=== PATIENT | female | born 1950 | race Caucasian/White ===

== ENCOUNTER 2019-05-31 08:17 | Day surgery (SDC) | payer MEDICARE, BC ==
[~2019-05-31 08:17] MED LIST: CHONDR SU A NA/HYALUR INTRAOC KIT (SURGICARE) ONE; EPINEPHRINE INJ/PF 1 MG/1 ML AMPULE ONE; LIDOCAINE 1%/PHENYLEPHRINE 1.5% 1 ML VIAL ONE
[2019-05-31] MEDS: DORZOLAMIDE HCL 2%/TIMOLOL MALEAT 0.5% OPH SOLN 10 ML OD PRN ×2 (09:04)
[2019-05-31] MEDS: BESIFLOXACIN HCL 0.6% OPH SUSP 5 ML BOTTLE OD PRN ×4 (09:04→09:28)
[2019-05-31] MEDS: CYCLOPENTOLATE 0.2%/PHENYLEPHRINE 1% OPH SOLN 2 ML OD PRN ×3 (09:08→09:28)
[2019-05-31] MEDS: TROPICAMIDE 1% OPH SOLN 15 ML OD PRN ×3 (09:08→09:28)
[2019-05-31] MEDS: KETOROLAC TROMETHAMINE 0.45% 4 DROP/0.4 ML DROPERETTE OD PRN ×2 (09:09→10:30)
[2019-05-31] MEDS: TETRACAINE HCL 0.5% OPH SOLN 4 ML OD PRN ×3 (09:09→09:46)
[2019-05-31] MEDS ORDERED: MIDAZOLAM 2 MG/2 ML INJ ONE (09:22)
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
== END 2019-05-31 10:50 | disposition home or self-care (01) ==
LOC: SC 08:17
PROVIDERS: ATTEND Internal Medicine
DX: H25.813 Combined forms of age-related cataract, bilateral (principal); H43.813 Vitreous degeneration, bilateral; H52.4 Presbyopia; M06.9 Rheumatoid arthritis, unspecified; Z87.891 Personal history of nicotine dependence; Z79.899 Other long term (current) drug therapy
CPT/HCPCS: 66984; 00142; V2632; J2250; J3490 ×2; A9270; J0171; J2370; 142

== ENCOUNTER 2019-06-21 08:56 | Day surgery (SDC) | payer MEDICARE, BC ==
[~2019-06-21 08:56] MED LIST changes: +DORZOLAMIDE HCL 2%/TIMOLOL MALEAT 0.5% OPH SOLN 10 ML OS PRN; +KETOROLAC TROMETHAMINE 0.45% 4 DROP/0.4 ML DROPERETTE OS PRN
[2019-06-21] MEDS ORDERED: MIDAZOLAM 2 MG/2 ML INJ ONE (09:06)
[2019-06-21] MEDS ORDERED: FENTANYL CITRATE INJ/PF 100 MCG/2 ML AMPUL ONE (09:06)
[2019-06-21] MEDS ORDERED: ONDANSETRON HCL INJ/PF 4 MG/2 ML SDV ONE (09:06)
[2019-06-21] MEDS: TETRACAINE HCL 0.5% OPH SOLN 4 ML OS PRN ×3 (09:30→09:59)
[2019-06-21] MEDS: TROPICAMIDE 1% OPH SOLN 15 ML OS PRN ×3 (09:31→09:53)
[2019-06-21] MEDS: BESIFLOXACIN HCL 0.6% OPH SUSP 5 ML BOTTLE OS PRN ×3 (09:31→10:18)
[2019-06-21] MEDS: CYCLOPENTOLATE 0.2%/PHENYLEPHRINE 1% OPH SOLN 2 ML OS PRN ×3 (09:31→09:53)
[2019-06-21] MEDS ORDERED: EPINEPHRINE INJ/PF 1 MG/1 ML AMPULE ONE (09:51)
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
== END 2019-06-21 10:48 | disposition home or self-care (01) ==
LOC: SC 08:56
PROVIDERS: ATTEND Internal Medicine
DX: H25.812 Combined forms of age-related cataract, left eye (principal); Z96.1 Presence of intraocular lens
CPT/HCPCS: 66984; 00142; J2250; J3490 ×2; A9270; J0171; J3010; J2405; 142; V2632

== ENCOUNTER → 2019-11-21 | Outpatient (CLI) | payer MEDICARE, BC ==
--- NOTE | 2019-11-21 13:01 | WOMENS IMAGING REPORT ---
EXAM DESCRIPTION: 3D SCREENING MAMMO BILAT IMAGES COMPLETED DATE/TIME: 11/21/2019 10:43 am REASON FOR STUDY: Z12.31 ENCOUNTER FOR SCREENING MAMMOGRAM FOR MALIGNANT NEOPLASM OF BREAST Z12.31 ENCNTR SCREEN MAMMOGRAM FOR MALIGNANT NEOPLASM OF CRYSTAL COMPARISON: None. EXAM PARAMETERS: Views: Standard craniocaudal and mediolateral oblique views of each breast recorded using digital acquisition and breast tomosynthesis. Read with the assistance of CAD. .[facility] - R2 Contact Manager Version 9.2 LIMITATIONS: None. FINDINGS: No suspicious masses, suspicious calcifications or architectural distortion. No areas of c oncern. IMPRESSION: NEGATIVE MAMMOGRAM. BIRADS 1. BREAST DENSITY: b. There are scattered areas of fibroglandular density. BIRAD: ASSESSMENT: 1 NEGATIVE RECOMMENDATION: ROUTINE SCREENING COMMENT: The patient has been notified of the results by letter per MQSA requirements. Additional no tification policies are in place for contacting patient with suspicious or incomplete findings. Quality ID #225: The [employer] recommends an annual screening mammogram for women aged 40 years or over. This facility utilizes a reminder system to ensure that all patients receive reminder letters, and/or direct phone calls for appointments. This includes reminders for routine scr eening mammograms, diagnostic mammograms, or other Breast Imaging Interventions when appropriate. Th is patient will be placed in the appropriate reminder system. TECHNICAL DOCUMENTATION: FINDING NUMBER: (1) ASSESSMENT: (1) JOB ID: [id number] 2010 [employer]- All Rights Reserved Reading location - IP/workstation name: [email or web address]
== END ==
LOC: WI 10:19
PROVIDERS: ATTEND Physician Assistant Medical
DX: Z12.31 Encounter for screening mammogram for malignant neoplasm of breast (principal)
CPT/HCPCS: 77063; 77067

== ENCOUNTER 2020-03-07 15:39 | Emergency (ER) | payer MEDICARE, BC ==
[2020-03-07] MEDS ORDERED: ACETAMINOPHEN 325 MG TABLET PO ONE (16:07)
--- NOTE | 2020-03-07 16:12 | ER Document Report ---
HPI - HPI Time Seen by Provider: 03/07/20 16:05 Pain Level: 3 Context: Patient is a 69-year-old female who presents emergency department with a chief complaint of right hand/wrist pain. Patient was on a stool and ended up falling down on her right wrist. Patient is left-handed. Denies hitting her head. She is not currently on any blood thinners. - ROS Systems Reviewed and Negative: Yes All other systems reviewed and negative - MUSCULOSKELETAL Musculoskeletal: REPORTS: Extremity pain - Right wrist, Swelling - Right wrist - DERM Skin Color: Normal Skin Problems: None Past Medical History - Social History Smoking Status: Never Smoker Family History: Reviewed & Not Pertinent - Past Medical History Cardiac Medical History: Denies: Hx Heart Attack, Hx Hypertension Pulmonary Medical History: Denies: Hx Asthma Neurological Medical History: Denies: Hx Cerebrovascular Accident, Hx Seizures GI Medical History: Denies: Hx Hepatitis, Hx Hiatal Hernia, Hx Ulcer Infectious Medical History: Denies: Hx Hepatitis Past Surgical History: Denies: Hx Mastectomy, Hx Open Heart Surgery, Hx Pacemaker Vertical Provider Document - CONSTITUTIONAL Agree With Documented VS: Yes Exam Limitations: No Limitations General Appearance: No Apparent Distress - INFECTION CONTROL TRAVEL OUTSIDE OF THE [place] IN LAST 30 DAYS: No - HEENT HEENT: Atraumatic, Normocephalic, PERRLA - RESPIRATORY Respiratory: No Respiratory Distress - CARDIOVASCULAR Cardiovascular: Regular Rate, Regular Rhythm Pulses: Normal: Radial - MUSCULOSKELETAL/EXTREMETIES Musculoskeletal/Extremeties: FROM, Tender - Right wrist - NEURO Level of Consciousness: Awake, Alert, Appropriate Motor/Sensory: No Motor Deficit, No Sensory Deficit - DERM Integumentary: Warm, Dry, No Rash Course - Re-evaluation Re-evalutation: 03/07/20 17:23 Patient has a comminuted distal radius fracture. Will place patient in a volar splint. She will follow-up with her orthopedic doctor. Capillary refill less than 3 seconds. Radial pulse 2+. No vascular compromise noted. Follow-up precautions were given. Verbal discharge instructions were given to the patient. They verbalized understanding. They are stable for discharge. - Vital Signs Vital signs: Temp Pulse Resp BP Pulse Ox 97.7 F 89 18 132/63 H 100 03/07/20 15:51 03/07/20 15:51 03/07/20 15:51 03/07/20 15:51 03/07/20 15:51 Procedures - Immobilization Right Wrist Pre-Proc Neuro Vasc Exam: Normal Immobilizer type: Volar splint Performed by: PCT Post-Proc Neuro Vasc Exam: Normal, Unchanged from pre-exam Alignment checked and good: Yes Discharge - Discharge Clinical Impression: Radius fracture Qualifiers: Encounter type: initial encounter Radius location: distal physis (incl. Salter- Santamaria) Fracture alignment: displaced Laterality: right Qualified Code(s): S59.201A - Unspecified physeal fracture of lower end of radius, right arm, initial encounter for closed fracture Condition: Stable Disposition: HOME, SELF-CARE Additional Instructions: You were seen today in the emergency department after a fall with right wrist pain. You have a fracture. Keep the splint on until you see orthopedics. Call them first thing Tuesday morning and see if he can get an appointment that day. You can take your Tylenol codeine as needed for pain. Prescriptions: Acetaminophen with Codeine [Tylenol #3 Tablet] 1 each PO Q4HP PRN #20 tablet PRN Reason: Referrals: PONCE RICHARDS PA-C [Primary Care Provider] - Follow up in 3-5 days
--- NOTE | 2020-03-07 17:09 | RADIOLOGY REPORT (SQ) ---
EXAM DESCRIPTION: HAND RIGHT 3 VIEWS; WRIST RIGHT 3 VIEWS IMAGES COMPLETED DATE/TIME: 03/07/2020 4:44 pm REASON FOR STUDY: hand/wrist pain COMPARISON: None. EXAM PARAMETERS: NUMBER OF VIEWS: Six views. TECHNIQUE: AP, lateral and oblique radiographic images acquired of the right hand and wrist. LIMITATIONS: None. FINDINGS: MINERALIZATION: Osteopenia. BONES: Mildly angulated comminuted fracture of the distal radius. Degenerative changes are seen pred ominantly of the thumb carpal metacarpal joint and interphalangeal joints. JOINTS: No effusions. SOFT TISSUES: Soft tissue swelling surrounds the injury site. OTHER: No other significant finding. IMPRESSION: Mildly angulated comminuted fracture of the distal radius. TECHNICAL DOCUMENTATION: JOB ID: [id number] 2010 [employer]- All Rights Reserved Reading location - IP/workstation name: [email or web address]
--- NOTE | 2020-03-07 17:09 | RADIOLOGY REPORT (SQ) ---
EXAM DESCRIPTION: HAND RIGHT 3 VIEWS; WRIST RIGHT 3 VIEWS IMAGES COMPLETED DATE/TIME: 03/07/2020 4:44 pm REASON FOR STUDY: hand/wrist pain COMPARISON: None. EXAM PARAMETERS: NUMBER OF VIEWS: Six views. TECHNIQUE: AP, lateral and oblique radiographic images acquired of the right hand and wrist. LIMITATIONS: None. FINDINGS: MINERALIZATION: Osteopenia. BONES: Mildly angulated comminuted fracture of the distal radius. Degenerative changes are seen pred ominantly of the thumb carpal metacarpal joint and interphalangeal joints. JOINTS: No effusions. SOFT TISSUES: Soft tissue swelling surrounds the injury site. OTHER: No other significant finding. IMPRESSION: Mildly angulated comminuted fracture of the distal radius. TECHNICAL DOCUMENTATION: JOB ID: [id number] 2010 [employer]- All Rights Reserved Reading location - IP/workstation name: [email or web address]
[2020-03-07] MEDS ORDERED: ACETAMINOPHEN WITH CODEINE #3 TABLET PO ONE (17:27)
[2020-03-07 17:46] VITALS: BP 129/71
== END 2020-03-07 17:42 | disposition home or self-care (01) ==
LOC: ER 15:39
DX: S59.201A Unspecified physeal fracture of lower end of radius, right arm, initial encounter for closed fracture (principal); W17.89XA Other fall from one level to another, initial encounter
CPT/HCPCS: 99284; 73130; 73110; 29125; A9270 ×2